=== PATIENT | male | born 1980 | race African-American/Black ===

== ENCOUNTER 2024-08-25 08:33 | Observation (INO) | payer OTHER ==
[~2024-08-25] VITALS: Ht 188 cm; Wt 94.0 kg
[2024-08-25] VITALS (19 sets, daily range): BP systolic 102–143; BP diastolic 64–94
--- NOTE | 2024-08-25 08:57 | NUR ---
PATIENT FOUND IN ROOM 5
[2024-08-25] MEDS ORDERED: cefTRIAXone SODIUM 2 GM in SODIUM CHLORIDE 0.9% 100 ML IV ONE (09:10)
[2024-08-25] MEDS ORDERED: SODIUM CHLORIDE 0.9% 1,000 ML IV ONE (09:10)
[2024-08-25] MEDS ORDERED: AZITHROMYCIN 250 MG/TAB PO ONE (09:10)
--- NOTE | 2024-08-25 09:27 | NUR ---
PT PLACED ON O2 @ 2LPM VIA NASAL CANNULA AT THIS TIME DUE TO DEC pO2 ON ABG RESULTS.
[2024-08-25 09:39] LABS: BASO% 0.4 % (0-3); EOS% 0.7 % (0-8); HEMATOCRIT 45.6 % (39.0-50.0); HEMOGLOBIN 15.3 g/dl (14.0-18.0); IMMATURE GRANULOCYTES 0.5 % (0.0-5.0); LYMPH% 21.6 % (15-41); MEAN CELL VOLUME 89.9 fL CALC (80.0-100.0); MEAN CORPUSCULAR HGB 30.2 pG CALC (26.0-32.0); MEAN CORPUSCULAR HGB CONC 33.6 g/dL CAL (32.0-36.0); NEUT# 5.57 thou/uL (1.82-7.42); NEUT% 65.8 % (42-76); RED BLOOD COUNT 5.07 mill/uL (4.70-6.10); RED CELL DISTRI WIDTH 12.7 % (11.5-15.5)
[2024-08-25 09:50] LABS: ALBUMIN 3.9 g/dL (3.2-5.0); ALKALINE PHOSPHATASE 144 u/l (38-126); ANION GAP 14 (6-22 (CALC)); BILIRUBIN, TOTAL 0.9 mg/dL (0.2-1.3); BUN 4 mg/dL (9-20); BUN/CREATININE RATIO 5 (12-20 (CALC)); CARBON DIOXIDE 27 mmol/l (22-30); CHLORIDE 107 mmol/l (95-108); CREATININE 0.9 mg/dL (0.7-1.3); ESTIMATED GFR 107 ML/MIN (>=90 (CALC)); POTASSIUM 4.1 mmol/l (3.5-5.1); SGOT/AST 48 u/l (17-59); SODIUM 143 mmol/l (137-146); TOTAL PROTEIN 7.3 g/dL (6.3-8.2)
[2024-08-25] MEDS ORDERED: OSELTAMIVIR PHO75 MG (11:01)
--- NOTE | 2024-08-25 11:13 | NUR ---
Reassessment of patient completed. No distress noted.
[2024-08-25] MEDS ORDERED: ACETAMINOPHEN 325 MG/TAB PO PRN (12:10)
[2024-08-25] MEDS ORDERED: MAGNESIUM HYDROXIDE 30 ML UDC PO PRN (12:10)
[2024-08-25] MEDS ORDERED: IPRATROPIUM-Albuterol 0.5MG-2.5MG/3 ML NEB PRN (12:10)
[2024-08-25] MEDS ORDERED: SODIUM CHLORIDE 0.9% 1,000 ML IV PRN (12:10)
--- NOTE | 2024-08-25 12:31 | NUR ---
BEDSIDE WITH PATIENT
--- NOTE | 2024-08-25 13:02 | NUR ---
Reassessment of patient completed. No distress noted.
--- NOTE | 2024-08-25 13:14 | NUR ---
PATIENT CARE REPORT CALLED TO ARIEL KIM
--- NOTE | 2024-08-25 13:40 | NUR ---
RECEIVED PT FROM ER VIA W/C ACCOMPANIED BY NORAH AND HIS . PT ASSISTED TO BED AFTER WEIGHED AND ORIENTED TO ROOM, CALL LIGHT AND PHONE. PT C/O SOME DYSPNES WITH RESP RATE 20-24. LUNGS DIMINISHED B/L MID LOBES TO BASES. PO2 93% ON R/A. PT PLACED ON 2 LITERS N/C. TELE # 7 ST 104. FLUIDS GIVEN AND ENCOURAGED WELL B/L LE TEDS STOCKINGS PLACED. REVIEWED NEED FOR I.S. USE AND PT DEMONSTRATED ONLY 500-750. WILL MONITOR.
[2024-08-25] MEDS ORDERED: IBUPROFEN 600 MG/TAB PO PRN (15:40)
--- NOTE | 2024-08-25 18:32 | NUR ---
PT RESTING IN BED WATCHING TV FEELING BETTER AFTER FEVER BROKE AND RESP TREATMENT GIVEN. AT BEDSIDE TO ASSIST PT WITH BATHING LATER. NO CHANGES TO REPORT. VS IMPROVED. WILL CONTINUE TO MONITOR.
[2024-08-25] MEDS ORDERED: ENOXAPARIN SODIUM 40 MG/0.4 ML SYR SC SCH (21:00)
--- NOTE | 2024-08-25 23:28 | NUR ---
Resting in bed no c/o pain. Denies any discomfort or distress. will continue to monitor.
[2024-08-26] VITALS (8 sets, daily range): BP systolic 114–148; BP diastolic 73–84
--- NOTE | 2024-08-26 00:34 | NUR ---
Patient resting in bed no c/o pain or any discomfort. Call light within reach will continue to monitor.
[2024-08-26 04:53] LABS: ALBUMIN 3.3 g/dL (3.2-5.0); BILIRUBIN, TOTAL 0.9 mg/dL (0.2-1.3); CREATININE 0.8 mg/dL (0.7-1.3); MAGNESIUM 2.1 mg/dL (1.6-2.3); POTASSIUM 4.4 mmol/l (3.5-5.1); TOTAL PROTEIN 6.4 g/dL (6.3-8.2)
[2024-08-26 04:57] LABS: BASO% 0.3 % (0-3); EOS% 2.1 % (0-8); HEMATOCRIT 42.9 % (39.0-50.0); IMMATURE GRANULOCYTES 1.6 % (0.0-5.0); LYMPH% 22.3 % (15-41); MEAN CELL VOLUME 93.3 fL CALC (80.0-100.0); MEAN CORPUSCULAR HGB 30.4 pG CALC (26.0-32.0); MEAN CORPUSCULAR HGB CONC 32.6 g/dL CAL (32.0-36.0); MONO% 10.4 % (2-13); NEUT# 5.8 thou/uL (1.82-7.42); NEUT% 63.3 % (42-76); RED BLOOD COUNT 4.6 mill/uL (4.70-6.10); RED CELL DISTRI WIDTH 12.9 % (11.5-15.5)
--- NOTE | 2024-08-26 05:34 | NUR ---
Pt resting in bed no c/o pain or any significant symptoms reported. call light within reach will continue to monitor
--- NOTE | 2024-08-26 08:01 | NUR ---
KASIE A/O X3; ROM AIR; BREATHING UNLABORED AND EVEN; DENIED ANY PAIN; DENIED ANY N/D/V AT THI STIME/ I/S AT BEDSIDE AT T HIS TIME; IV SITE CLEAN AND INTACT RUNNING WITH NS @100; FAMILY AT BEDSIDE; NO COMPLAINTS AT THIS TIME; POC WAS REVIEWED; CALL LIGHT WITHIN REACH; BED IN LOWEST POSTION;VERBALIZED UNDERSTANDING ON HOW TO USE;SAFTEY MEASURES IN PLACE
[2024-08-26] MEDS ORDERED: OSELTAMIVIR PHOSPHATE 75 MG/TAB CAP PO SCH (10:00)
[2024-08-26] MEDS ORDERED: AZITHROMYCIN 500 MG in SODIUM CHLORIDE 0.9% 250 ML IV SCH (10:00)
--- NOTE | 2024-08-26 12:00 | NUR ---
patient a/o x3; room air; breathing unlabored and even; denied any pain; dneied any n/d/v at this time; iv site clean and intact running with ns @100; poc was reviewed; no issues or complaints at this time; call light within reach,verbalized understanding on how to use, personal items within reach; bed in lowest postion;saftey measures in place \
--- NOTE | 2024-08-26 16:48 | NUR ---
PATINET RESTING IN BED; DENIED ANY PAIN; DENIED ANY N/D/V AT THIS TIME; IV SITE CLEAN AND INTACT RUNNING WITH NS @100; NO COMPLAITS AT THIS TIME; PERSONAL ITEMS WITHIN REACH; VERBALIZEED UNDERSTANDING ON HOW TO USE,BED IN LOWEST POSTION;SAFTEY MEASRES IN PLACE; NO COMPLAINTS
--- NOTE | 2024-08-26 20:15 | NUR ---
PT RESTING NO DISTRESS NOTED SPOOUSE AT BEDSIDE. PT REPORTS HAVING A DRY COUGH AT TIME WHILE USING INCENTIVE SPIROMETER DEVICE. VS WNL ON RA LUNGS CLEAR. SKIN INTACT. IV FLUID INFUSION ONGOING. CALL LIGHT WITHIN REACH. PLAN OF CARE ONGOING.
[2024-08-27 00:01] VITALS: BP 140/86
--- NOTE | 2024-08-27 00:05 | NUR ---
PT RESTING NO DISTRESS NOTED ON EXAM AWAKE. CALL LIGHT WITHIN REACH. PLAN OF CARE ONGOING.
[2024-08-27 03:51] VITALS: BP 124/79
--- NOTE | 2024-08-27 04:15 | NUR ---
PT SLEEPING BREATHING EVENLY NO DISTRESS NOTED ON EXAM. CALL LIGHT WITHIN REACH. PLAN OF CARE ONGOING.
[2024-08-27 05:43] LABS: BASO% 0.2 % (0-3); EOS% 2.7 % (0-8); HEMATOCRIT 40.1 % (39.0-50.0); HEMOGLOBIN 13.7 g/dl (14.0-18.0); IMMATURE GRANULOCYTES 4.1 % (0.0-5.0); LYMPH% 23.9 % (15-41); MEAN CELL VOLUME 89.7 fL CALC (80.0-100.0); MEAN CORPUSCULAR HGB 30.6 pG CALC (26.0-32.0); MEAN CORPUSCULAR HGB CONC 34.2 g/dL CAL (32.0-36.0); MONO% 11.8 % (2-13); NEUT# 5.33 thou/uL (1.82-7.42); NEUT% 57.3 % (42-76); RED BLOOD COUNT 4.47 mill/uL (4.70-6.10); RED CELL DISTRI WIDTH 12.7 % (11.5-15.5)
[2024-08-27 05:50] LABS: ALBUMIN 3.1 g/dL (3.2-5.0); BILIRUBIN, TOTAL 0.6 mg/dL (0.2-1.3); CREATININE 0.8 mg/dL (0.7-1.3); MAGNESIUM 2.1 mg/dL (1.6-2.3); POTASSIUM 4.1 mmol/l (3.5-5.1); TOTAL PROTEIN 6.4 g/dL (6.3-8.2)
[2024-08-27 07:29] VITALS: BP 136/83
--- NOTE | 2024-08-27 07:30 | NUR ---
PT LAYING FLAT IN BED WITH EYES OPEN. AXO X3. NO SYS OF DISTRESS. ACTIVE BOWEL SOUNDS IN ALL 4. NORMAL S1,S2 HEART RYTHM. RESP EVEN AND UNLABORE ON ROOM AIR. CLEAR UPPERS AND DIMINISHED LOWERS LUNG BANUELOS. PT HAS 02 NC HANGING AT BEDSIDE FOR ASSTANCE, BUT ISNT MEDICALLY NECESSARY. DRY, UNPRODUCTICE COUGH OCCASIONALLY. STRONG PEDAL AND RADIAL PULSES. PT DECLINES ANY PAIN AT THIS TIME. 18G IN LEFT AC CLEAN AND IN PLACE WITH NORMAL SALINE RUNNING AT 100. SAFETY PRECAUTIONS REINFORCED. BED IN THE LOWEST POSITION AND CALL LIGHT IS WITHIN REACH.
[2024-08-27] MEDS ORDERED: DOXYCYCLINE100 MG PO (10:25)
[2024-08-27] MEDS ORDERED: PREDNISONE10 MG PO (10:32)
--- NOTE | 2024-08-27 11:55 | NUR ---
DISCHARGE PAPERWORK PROVIDED TO PT. NURSE REVIEWED AND SIGNERD BY PATIENT. PT IN ROOM GETTING DRESSED. PT WILL NOTIFY STAFF WHEN READY TO AMBULATE OUT OF THE HOSPITAL DURING DISCHARGE.
--- NOTE | 2024-08-27 12:17 | NUR ---
Discharge instructions given. Patient verbalizes understanding of same. Discharged in stable condition via Ambulatory to Home with spouse. All belongings sent with pt.
== END 2024-08-27 12:17 | disposition home or self-care (01) | DRG 195 ==
LOC: ED 08:33 → ED-I 11:49 → ED 12:04 → MS2 12:05
PROVIDERS: Family Medicine; Nurse Practitioner Family; ADMIT Internal Medicine; ATTEND Internal Medicine
DX: J11.00 Influenza due to unidentified influenza virus with unspecified type of pneumonia (principal); R09.02 Hypoxemia; E78.5 Hyperlipidemia, unspecified; Z20.822 Contact with and (suspected) exposure to COVID-19
CPT/HCPCS: G0378; J0456; J0696; J1650; Q9967